=== PATIENT | female | born 1955 | race Caucasian/White ===

== ENCOUNTER 2020-08-09 13:37 | Emergency (ER) | payer MEDICARE, OTHER ==
[2020-08-09 13:51] VITALS: BP 151/75
--- NOTE | 2020-08-09 15:00 | ED Physician Documentation ---
History of Present Illness - Stated complaint Stated Complaint: L EAR PX - Chief complaint Chief Complaint: Heent - History obtained from History obtained from: Patient - History of Present Illness Timing: How many days ago (2) Pain level max: 4 Pain level now: 4 - Additonal information Additional information: 65-year-old female with left ear pain. Ongoing for the past several days. She states she feels a bump at her ear canal. Has had an abscess in the past that improved with antibiotics. Nothing makes this better or worse. No drainage. No fever. No chills. No rhinorrhea or congestion. Review of Systems Constitutional: denies: Fever, Chills GI: denies: Vomiting Skin: denies: Rash PD PAST MEDICAL HISTORY - Past Medical History Past Medical History: No - Past Surgical History Past Surgical History: No - Present Medications Home Medications: Ambulatory Orders Medication Instructions Recorded Confirmed HYDROcod/ACETAM 5/325 [[place] 5/325] 1 - 2 ea PO Q6H PRN 08/09/20 08/09/20 clindamycin HCL [Cleocin HCl] 300 mg PO Q6H #40 capsule 08/09/20 - Allergies Allergies/Adverse Reactions: Allergies Allergy/AdvReac Type Severity Reaction Status Date / Time Sulfa (Sulfonamide Allergy Emesis Verified 08/09/20 13:47 Antibiotics) codeine AdvReac Anxiety Verified 08/09/20 13:47 PD ED PE NORMAL - Vitals Vital signs reviewed: Yes - General General: Alert and oriented X 3, No acute distress - HEENT HEENT: Moist mucous membranes, Other (Left TM is normal and ear canal is normal. At the entrance of the auditory canal there is a small raised erythematous area. No fluctuance or drainage.) - Neck Neck: Supple, no meningeal sign - Cardiac Cardiac: RRR - Respiratory Respiratory: No respiratory distress, Clear bilaterally - Derm Derm: Warm and dry - Neuro Neuro: Alert and oriented X 3 - Psych Psych: Normal mood, Normal affect Results - Vitals Vitals: Vital Signs - 24 hr 08/09/20 08/09/20 13:48 15:05 Temperature 37.0 C Heart Rate 61 61 Respiratory 18 14 Rate Blood Pressure 151/75 H 151/75 H O2 Saturation 98 99 Oxygen O2 Source Room air PD MEDICAL DECISION MAKING - ED course Complexity details: considered differential, d/w patient ED course: Patient with a small abscess to the opening of the auditory canal of the left ear. No drainage. We will place on antibiotics and have her follow-up closely with her doctor to see if drainage is required. Patient counseled regarding signs and symptoms for which I believe and urgent re-evaluation would be necessary. Patient with good understanding of and agreement to plan and is comfortable going home at this time This document was made in part using voice recognition software. While efforts are made to proofread this document, sound alike and grammatical errors may occur. Departure - Departure Disposition: 01 Home, Self Care Clinical Impression: Abscess Condition: Good Instructions: ED Abscess IandD Follow-Up: Michelle Bernard MD [Primary Care Provider] - Within 1 week Prescriptions: clindamycin HCL [Cleocin HCl] 300 mg PO Q6H #40 capsule Comments: Take all antibiotics until gone. Return if you worsen. Follow-up with your doctor for further care. You can use warm compresses as well. Discharge Date/Time: 08/09/20 15:05
== END 2020-08-09 15:05 | disposition home or self-care (01) ==
LOC: ED 13:37
DX: H60.02 Abscess of left external ear (principal)
CPT/HCPCS: 99282; 99284